=== PATIENT | female | born 1980 | race Caucasian/White ===

== ENCOUNTER → 2019-01-16 | Outpatient (CLI) | payer BC, OTHER ==
--- NOTE | 2019-01-16 09:05 | MM ---
Reason for exam: screening (asymptomatic). Baseline mammogram. History: Took hormonal contraceptives beginning at age 16. Physical Findings: Nurse did not find any significant physical abnormalities on exam. MG Screening Mammo w CAD Bilateral CC, MLO, and XCCL view(s) were taken. The breast tissue is heterogeneously dense. This may lower the sensitivity of mammography. There are right upper inner quadrant round segmental calcifications spanning 10cm. No suspicious abnormality on the left. These results were verbally communicated with the patient and result sheet given to the patient on 01/16/19. ASSESSMENT: Incomplete: need additional imaging evaluation, BI-RAD 0 RECOMMENDATION: Follow-up diagnostic mammogram of the right breast. (magnification and lateral)
--- NOTE | 2019-01-16 09:11 | MM ---
Reason for exam: additional evaluation requested from abnormal screening. History: Took hormonal contraceptives beginning at age 16. Physical Findings: Breast exam preformed at baseline screening. MG Work Up Mamm w CAD RT CC with magnification, LM with magnification, and LM view(s) were taken of the right breast. The breast tissue is heterogeneously dense. This may lower the sensitivity of mammography. The 10cm from nipple upper inner quadrant round segmental calcifications, given segmental distribution, biopsy recommended. These results were verbally communicated with the patient and result sheet given to the patient on 01/16/19. ASSESSMENT: Suspicious, BI-RAD 4 RECOMMENDATION: Stereotactic core biopsy of the right breast. Called Dr. Chavze's office with mammographic findings and has scheduled an appointment for the patient for 01/25/19 at 1:[address] Wilcox. Biopsy scheduled for 02/10/18 at 8:00. PRELIMINARY REPORT CALLED AND FAXED TO DR. WILCOX ON 01/16/19.
== END | disposition home or self-care (01) ==
LOC: RADMAMWWP 06:56
PROVIDERS: ATTEND Family Medicine
DX: Z12.31 Encounter for screening mammogram for malignant neoplasm of breast (principal); R92.8 Other abnormal and inconclusive findings on diagnostic imaging of breast
CPT/HCPCS: 77065; 77067

== ENCOUNTER → 2019-01-25 | Outpatient (CLI) | payer BC ==
[2019-01-25 14:40] VITALS: BP 130/79; PULSE 64; RESP 18; TEMP 98.3
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
== END | disposition home or self-care (01) ==
LOC: WWCWWP 13:33
PROVIDERS: ATTEND Surgery
DX: Z53.9 Procedure and treatment not carried out, unspecified reason (principal)

== ENCOUNTER → 2019-02-10 | Day surgery (SDC) | payer BC ==
[2019-02-10 07:23] VITALS: RESP 16
--- NOTE | 2019-02-10 08:44 | P.PCN ---
Date of Procedure: 02/10/19 Preoperative Diagnosis: Right breast microcalcifications of concern secondary to segmental distribution Postoperative Diagnosis: Same Procedure(s) Performed: Right breast sterotactic core biopsy Anesthesia: local Surgeon: Jovana Wilcox Estimated Blood Loss (ml): 0 Pathology: other (Breast tissue) Condition: stable Disposition: same day Indications for Procedure: Segmental distribution of calcifications right breast Operative Findings: Microcalcifications noted in specimen Description of Procedure: Carin is a 38-year-old white female who on mammogram was noted to have in the upper inner quadrant wound segmental calcifications. Given the segmental distribution biopsy was recommended. Risks and benefits of stereotactic core biopsy were discussed with the patient and she wished to proceed. The patient was taken to the stereotactic core biopsy room and positioned on the stereotactic table. A gas technician film was obtained in the area of concern was identified. The lesion of concern was targeted. The breast was prepped using Betadine. A CC from above approach was utilized. 20 mL of 1% lidocaine tendon which had epinephrine were used to anesthetize the area of concern. A 9-gauge vacuum-assisted core rotating biopsy needle was driven to the correct coordinates. 12 core biopsies were obtained. Radiograph of the specimen revealed the area of concern had been adequately sampled. A secure cristina top supervisor commercial fish [employer]chery was placed. The patient tolerated the procedure in stable condition. Pus was sent to pathology. Patient will follow-up with Dr. Mendiola in 1 week.
[2019-02-10 08:54] VITALS: BP 114/72; PULSE 54; TEMP 98
--- NOTE | 2019-02-10 16:57 | MM ---
EXAMINATION TYPE: MG stereo VAD BX RT DATE OF EXAM: 02/10/2019 COMPARISON: 01/16/2019 CLINICAL HISTORY: 38-year-old female referred for biopsy of upper quadrant right breast microcalcifications. TECHNIQUE: Stereotactic guided core biopsy of the right breast. FINDINGS: The procedure of stereotactic guided core biopsy was explained to the patient. Benefits, alternatives, and risks were discussed. An informed consent was then obtained. 10 cm span of regional calcifications are demonstrated in the upper inner quadrant. A customer retention representative, centrally located, course heterogeneous calcification was targeted. The shortness pathway for biopsy was chosen. Shortness pathway was a superior approach. I performed the localization, then surgeon, Dr. Maury Martin performed the remainder of the procedure. A vacuum assisted biopsy gun was used to obtain multiple core samples. The patient tolerated the procedure well without any immediate complication. The patient was kept in the radiology department for short stay after the procedure and then discharged home in stable condition. Targeted calcifications are identified in specimen mammogram. Post biopsy mammogram shows the clip to appear in satisfactory position relative to the targeted area of concern on the preprocedure images at the 2:00 position. IMPRESSION: SUCCESSFUL, UNCOMPLICATED STEREOTACTIC GUIDED CORE BIOPSY OF A UI ARCHITECT COURSE CALCIFICATION AT THE 2:00 POSITION LOCATED WITHIN THE LARGER REGIONAL GROUPING OF UPPER INNER QUADRANT RIGHT BREAST CALCIFICATIONS. FULL PATHOLOGY RESULTS TO FOLLOW. Pathology Results: Benign RIGHT BREAST, STEREOTACTIC CORE BIOPSY: Calcified fat necrosis/scar in a background of fibrocystic changes. Negative for malignancy. Recommendation Follow up mammogram of the right breast in 6 months. MTDD
== END ==
LOC: RADMAMWWP 06:59
PROVIDERS: ATTEND Surgery
DX: N64.1 Fat necrosis of breast (principal); N60.11 Diffuse cystic mastopathy of right breast; L90.5 Scar conditions and fibrosis of skin
CPT/HCPCS: 88305; 19081; J2001

== ENCOUNTER → 2019-02-17 | Outpatient (CLI) | payer BC ==
[2019-02-17 13:31] VITALS: BP 122/79; PULSE 74; RESP 18; TEMP 98.3
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
== END | disposition home or self-care (01) ==
LOC: WWCWWP 13:22
PROVIDERS: ATTEND Surgery
DX: Z53.9 Procedure and treatment not carried out, unspecified reason (principal)

== ENCOUNTER → 2022-08-18 | Outpatient (CLI) | payer BC ==
--- NOTE | 2022-08-19 14:23 | MM ---
Reason for Exam: Screening (asymptomatic). Last mammogram was performed 3 year(s) and 7 month(s) ago. Patient History: Menarche at age 11. First Full-Term at age 15. Patient has history of breast feeding. Hormonal Contraceptives, from age 16 until age 28. 02/10/2019, Benign Core Biopsy on the right side. Risk Values: Alexa 5 year model risk: 0.9%. NCI Lifetime model risk: 8.6%. Prior Study Comparison: 01/16/2019 Bilateral Screening Mammogram, [facility]. 01/16/2019 Right Diagnostic Mammogram, [facility]. Tissue Density: There are scattered fibroglandular densities. Findings: Analyzed By CAD. Pattern appears symmetrical. Multiple calcifications are within the medial right breast. No significant interval change is evident. No suspicious groups of microcalcifications, spiculated or lobular masses, architectural distortion or other secondary signs of malignancy are mammographically apparent. Overall Assessment: Benign, BI-RAD 2 Management: Screening Mammogram of both breasts in 1 year. A negative mammogram report should not preclude additional follow up of suspicious palpable abnormalities. Patient should continue monthly self breast exam. A clinical breast exam by your physician is recommended on an annual basis and results should be correlated with mammographic findings. Electronically signed and approved by: Nav [employer] D.O. [employer]is
== END | disposition home or self-care (01) ==
LOC: RADMAMWWP 15:36
PROVIDERS: ATTEND Family Medicine
DX: Z12.31 Encounter for screening mammogram for malignant neoplasm of breast (principal)
CPT/HCPCS: 77067